=== PATIENT | male | born 1990 | race Caucasian/White ===

== ENCOUNTER 2022-04-26 11:04 | Inpatient (IN) | payer OTHER ==
[2022-04-26 11:56] LABS: Absolute Lymphocytes (CBC) 2.3 K/uL (0.7-4.9); Hematocrit 45.8 % (39.6-49.0); Lymphocytes % 27.1 % (15.3-44.8); MPV 7.6 fL (7.6-11.3); RBC Red Blood Cell Count 5.44 M/uL (4.33-5.43)
[2022-04-26] MEDS ORDERED: NA CHLORIDE 0.9% 1,000 ML ONE ×2 (11:59→15:56)
[2022-04-26] MEDS ORDERED: HYDROMORPHONE HCL 1 MG/ML INJ ONE ×2 (11:59→16:44)
[2022-04-26 12:27] LABS: Protime INR 1.04
--- NOTE | 2022-04-26 12:32 | RAD REPORT ---
EXAM DESCRIPTION: CTAbdomen Pelvis W Contrast - 04/26/2022 12:24 pm CLINICAL HISTORY: Abdominal pain. Abdominal pain, acute, nonlocalized COMPARISON: No comparisons TECHNIQUE: Biphasic CT imaging of the abdomen and pelvis was performed with 100 ml non-ionic IV cont rast. All CT scans are performed using dose optimization technique as appropriate and may include automated exposure control or mA/KV adjustment according to patient size. FINDINGS: The lung bases are clear. Mild diffuse fatty liver is present. Extensive cholelithiasis. The spleen, pancreas, adrenal glands a re normal. Horseshoe kidney noted. No bowel obstruction, free air, free fluid or abscess. The appendix is normal. No evidence of signi ficant lymphadenopathy. Mild lumbar degenerative changes. IMPRESSION: Cholelithiasis. Fatty liver. Horseshoe kidney.
[2022-04-26 12:34] LABS: Albumin 3.8 g/dL (3.4-5.0); Bilirubin Total 1.7 mg/dL (0.2-1.0); Potassium 3.4 mmol/L (3.5-5.1); Protein, Total 7.7 g/dL (6.4-8.2)
[2022-04-26] MEDS ORDERED: HYDROMORPHONE HCL 0.5 MG/0.5 ML INJ ONE (13:16)
--- NOTE | 2022-04-26 14:12 | RAD REPORT ---
EXAM DESCRIPTION: US - Abdomen Exam Limited - 04/26/2022 1:59 pm CLINICAL HISTORY: ABD PAIN COMPARISON: No comparisons FINDINGS: The gallbladder demonstrates shadowing gallstones. No pericholecystic fluid or gallbladder wall thickening. The common bile duct not well assessed due to shadowing. The liver demonstrates no findings of intrahepatic biliary dilatation. IMPRESSION: Cholelithiasis.
[2022-04-26] MEDS ORDERED: LIDOCAINE VISCOUS 2% SOLN 15 ML UDC ONE (14:44)
[2022-04-26] MEDS ORDERED: MAGNES/ALUMIN/SIMET 30ML UCUP ONE (14:44)
[2022-04-26] MEDS ORDERED: FENTANYL CITR 100 MCG/2 ML ONE ×3 (15:56→18:21)
--- NOTE | 2022-04-26 16:41 | EDPHYS ---
Physician Documentation [facility] Name: Liang Phillips Age: 32 yrs Sex: Male : 1990 Arrival Date: 04/26/2022 Time: 11:09 Bed 16 Private MD: ED Physician Neil Flannery HPI: 04/26 11:45 This 32 yrs old Male presents to ER via Ambulatory with complaints of Abdominal cp Cramping, Nausea/Vomiting/Diarrhea, Fever. 11:45 The patient presents with abdominal pain in the upper abdomen. cp 11:45 Onset: The symptoms/episode began/occurred this morning, about 0400, started while cp eating a taco. The symptoms radiate to back. Associated signs and symptoms: Pertinent positives: nausea and vomiting, Pertinent negatives: chest pain, constipation, diarrhea, fever, hematuria, testicular pain, vomiting blood. The symptoms are described as constant. Severity of pain: in the emergency department the pain is actually worse markedly. Historical: - Allergies: 11:26 No Known Allergies; iw - Home Meds: 11:26 None [Active]; iw - PMHx: 11:26 None; iw - Immunization history:: Client reports having NOT received the Covid vaccine. - Social history:: Smoking status: Reported history of juuling and/or vaping. ROS: 11:50 Constitutional: Negative for body aches, chills, fever. cp 11:50 Eyes: Negative for injury, pain, redness, and discharge. cp 11:50 ENT: Negative for ear pain, sore throat, difficulty swallowing, difficulty handling secretions. 11:50 Cardiovascular: Negative for chest pain, palpitations. 11:50 Respiratory: Negative for cough, shortness of breath, wheezing. 11:50 Abdomen/GI: Positive for abdominal pain, nausea and vomiting. 11:50 Back: Positive for radiated pain. 11:50 : Negative for urinary symptoms. 11:50 Neuro: Negative for altered mental status, headache, weakness. 11:50 All other systems are negative. Exam: 12:00 Constitutional: The patient appears alert, awake, non-toxic, well developed, well cp nourished, diaphoretic, obese, in obvious pain, uncomfortable. 12:00 Head/Face: Normocephalic, atraumatic. cp 12:00 Eyes: Periorbital structures: appear normal, Conjunctiva: normal, no exudate, no injection, Sclera: no appreciated abnormality, Lids and lashes: appear normal, bilaterally. 12:00 ENT: External ear(s): are unremarkable, Nose: is normal, Mouth: Lips: moist, Oral mucosa: pink and intact, moist, Posterior pharynx: Airway: no evidence of obstruction, patent. 12:00 Chest/axilla: Inspection: normal, Palpation: is normal, no crepitus, no tenderness. 12:00 Cardiovascular: Rate: bradycardic, Rhythm: regular, Edema: is not appreciated, JVD: is not appreciated. 12:00 Respiratory: the patient does not display signs of respiratory distress, Respirations: cp labored breathing, is not present, shallow respirations, that is mild, Breath sounds: are clear throughout, no decreased breath sounds, no stridor, no wheezing. 12:00 Abdomen/GI: Inspection: obese Bowel sounds: active, all quadrants, Palpation: soft, in all quadrants, severe abdominal tenderness, in the mid upper abdomen, rebound tenderness, is not appreciated. 12:00 Back: CVA tenderness, is absent. cp 12:00 Skin: cellulitis, is not appreciated, no rash present. 12:00 Neuro: Orientation: to person, place \T\ time. Mentation: is normal, Motor: moves all fours, strength is normal, Sensation: is normal. Vital Signs: 11:25 Resp 18; Temp 96.8; Pulse Ox 100% on R/A; Weight 104.33 kg; Height 5 ft. 6 in. (167.64 iw cm); Pain 10/10; 11:28 BP 128 / 69; Pulse 45; iw 13:03 BP 101 / 46; Pulse 55; Resp 16; Pulse Ox 100% ; bp 14:12 BP 132 / 78; Pulse 42; Resp 14; Pulse Ox 93% ; bp 15:57 BP 134 / 68; Pulse 56; Resp 14; Pulse Ox 94% ; bp 16:41 BP 134 / 71; Pulse 63; Resp 16; Pulse Ox 94% ; bp 11:25 Body Mass Index 37.12 (104.33 kg, 167.64 cm) iw MDM: 11:29 Patient medically screened. cp 12:00 Differential diagnosis: bowel obstruction, cholecystitis, Cholelithiasis, pancreatitis, cp Peptic Ulcer Disease, Perf. Duodenal Ulcer, Perf. Gastric Ulcer, Ureterolithiasis, urinary tract infection. 15:15 Data reviewed: vital signs, nurses notes, lab test result(s), radiologic studies, CT cp scan, ultrasound. 15:15 Physician consultation: Agus Olivo MD was called at 15:10, regarding consult, patient's cp condition, requests management of pain and reevaluation, if pain can be controlled, wants patient discharged to f/u outpatient. 16:35 Physician consultation: Agus Olivo MD was contacted at 16:35, regarding admission, to the operating room, patient's condition, will admit to OR for cholecystectomy. 04/26 11:39 Order name: CBC with Diff; Complete Time: 12:11 04/26 15:13 Interpretation: RBC 5.44; PLT 251; Reviewed. 04/26 11:39 Order name: CMP; Complete Time: 13:29 04/26 13:29 Interpretation: Normal except: K 3.4; GLUC 158; BUN 23; GFR 81; BILIT 1.7; GLOB 3.9; cp A/G 1.0. 04/26 11:39 Order name: Lipase; Complete Time: 13:29 04/26 11:46 Order name: PT-INR; Complete Time: 13:29 04/26 11:46 Order name: Urine Microscopic Only 04/26 11:46 Order name: CT Abd/Pelvis - IV Contrast Only; Complete Time: 13:29 04/26 13:30 Order name: US Abdomen Limited: RUQ/epigastric area; Complete Time: 14:18 04/26 14:18 Interpretation: Report reviewed. 04/26 11:39 Order name: IV Saline Lock; Complete Time: 11:40 04/26 11:39 Order name: Labs collected and sent; Complete Time: 11:40 04/26 12:02 Order name: Labs - recollect needed: recollect green top/ chemistries hemolyzed; eb Complete Time: 12:14 04/26 12:13 Order name: EKG; Complete Time: 12:13 04/26 12:13 Order name: EKG - Nurse/Tech; Complete Time: 14:43 04/26 16:32 Order name: NPO; Complete Time: 16:41 cp Administered Medications: 11:50 Drug: Dilaudid (HYDROmorphone) 1 mg Route: IVP; Site: right antecubital; iw 12:30 Follow up: Response: No change in condition bp 11:50 Drug: NS 0.9% 1000 ml Route: IV; Rate: 1 bolus; Site: right antecubital; iw 14:43 Drug: GI Cocktail without - (Maalox Suspension 30 ml, Lidocaine Liquid 2 % 15 bp ml) Route: PO; 15:19 Follow up: Response: No adverse reaction bp 15:20 Drug: NS 0.9% 1000 ml Route: IV; Rate: 1 bolus; Site: right antecubital; bp 15:20 Drug: fentaNYL (PF) 25 mcg Route: IVP; Site: right antecubital; bp 16:41 Follow up: Response: No adverse reaction bp 16:41 Drug: Dilaudid (HYDROmorphone) 1 mg Route: IVP; Site: right antecubital; bp 16:45 Drug: Zosyn (piperacillin-tazobactam) 4.5 grams Route: IVPB; Infused Over: 60 mins; bp Site: right antecubital; 16:45 Drug: NS 0.9% 1000 ml Route: IV; Rate: 125 ml/hr; Site: right antecubital; bp Disposition: 17:17 Co-signature as Attending Physician, Neil Flannery MD I agree with the assessment and kdr plan of care. Disposition Summary: 04/26/22 16:40 Hospitalization Ordered Hospitalization Status: Observation cp Provider: Agus Olivo cp Location: Operating Room cp Condition: Stable cp Problem: new cp Symptoms: have improved cp Bed/Room Type: Standard cp Room Assignment: cp Diagnosis - Other cholelithiasis without obstruction cp Discharge Instructions: - Discharge Summary Sheet iw Forms: - SBAR form iw - Medication Reconciliation Form cp Signatures: Dispatcher [employer] Neil Haq MD MD kdr Williams, Irene, RN RN iw Dani Benitez PA PA cp Peltier, Brian, RN RN Carla Buchanan Corrections: (The following items were deleted from the chart) 11:27 11:26 PSHx: None; iw iw 15:08 12:11 Reviewed. cp cp 15:13 15:08 RBC 5.44; Reviewed. cp cp
--- NOTE | 2022-04-26 16:41 | ER ---
Nurse's Notes [facility] Name: Liang Phillips Age: 32 yrs Sex: Male : 1990 Arrival Date: 04/26/2022 Time: 11:09 Bed 16 Private MD: Diagnosis: Other cholelithiasis without obstruction Presentation: 04/26 11:25 Chief complaint: Patient states: mid abd pain X 2 hours, 10/10 , +vomiting and iw diarrhea. Coronavirus screen: At this time, the client does not indicate any symptoms associated with coronavirus-19. Ebola Screen: Patient negative for fever greater than or equal to 101.5 degrees Fahrenheit, and additional compatible Ebola Virus Disease symptoms Patient denies exposure to infectious person. Patient denies travel to an Ebola-affected area in the 21 days before illness onset. No symptoms or risks identified at this time. Initial Sepsis Screen: Does the patient meet any 2 criteria? No. Patient's initial sepsis screen is negative. Does the patient have a suspected source of infection? No. Patient's initial sepsis screen is negative. Risk Assessment: Do you want to hurt yourself or someone else? Patient reports no desire to harm self or others. Onset of symptoms was April 26, 2022. 11:25 Method Of Arrival: Ambulatory iw 11:25 Acuity: JUNIOR 3 iw Triage Assessment: 12:05 General: Appears distressed, uncomfortable, obese, Behavior is cooperative, appropriate bp for age, anxious. Pain: Complains of pain in abdomen. EENT: No deficits noted. Neuro: No deficits noted. Cardiovascular: No deficits noted. Respiratory: No deficits noted. GI: Reports lower abdominal pain, nausea, vomiting. : No signs and/or symptoms were reported regarding the genitourinary system. Derm: No deficits noted. Musculoskeletal: No deficits noted. Historical: - Allergies: 11:26 No Known Allergies; iw - Home Meds: 11:26 None [Active]; iw - PMHx: 11:26 None; iw - Immunization history:: Client reports having NOT received the Covid vaccine. - Social history:: Smoking status: Reported history of juuling and/or vaping. Screenin:17 Abuse screen: Denies threats or abuse. Denies injuries from another. Nutritional iw screening: No deficits noted. Tuberculosis screening: No symptoms or risk factors identified. Fall Risk IV access (20 points). Assessment: 11:45 General: Appears uncomfortable, ill, Behavior is cooperative. Pain: Complains of pain iw in umbilical area, right upper quadrant and left upper quadrant. Neuro: Level of Consciousness is awake, alert, obeys commands, Oriented to person, place, time, situation, Moves all extremities. Cardiovascular:. Respiratory: Respiratory effort is even. GI: Reports upper abdominal pain, diarrhea, nausea, vomiting. Derm: Skin is clammy, Skin temperature is cool. 12:30 Reassessment: PT RETURNED FROM CT. bp 13:03 Reassessment: No changes from previously documented assessment. Patient and/or family bp updated on plan of care and expected duration. Pain level reassessed. 14:13 Reassessment: No changes from previously documented assessment. Patient and/or family bp updated on plan of care and expected duration. Pain level reassessed. U/S COMPLETED. 16:41 Reassessment: SURGERY C/S PENDING. bp 16:51 Reassessment: PT TO OR. bp Vital Signs: 11:25 Resp 18; Temp 96.8; Pulse Ox 100% on R/A; Weight 104.33 kg; Height 5 ft. 6 in. (167.64 iw cm); Pain 10/10; 11:28 BP 128 / 69; Pulse 45; iw 13:03 BP 101 / 46; Pulse 55; Resp 16; Pulse Ox 100% ; bp 14:12 BP 132 / 78; Pulse 42; Resp 14; Pulse Ox 93% ; bp 15:57 BP 134 / 68; Pulse 56; Resp 14; Pulse Ox 94% ; bp 16:41 BP 134 / 71; Pulse 63; Resp 16; Pulse Ox 94% ; bp 11:25 Body Mass Index 37.12 (104.33 kg, 167.64 cm) iw ED Course: 11:09 Patient arrived in ED. ja2 11:15 Dani Benitez PA is PHCP. cp 11:16 Neil Flannery MD is Attending Physician. cp 11:26 Triage completed. iw 11:27 Arm band placed on. iw 11:40 Inserted saline lock: 20 gauge in right antecubital area, using aseptic technique. iw 12:26 CT Abd/Pelvis - IV Contrast Only In Process Unspecified. EDMS 12:28 Libardo Rizvi, RN is Primary Nurse. bp 12:33 Patient has correct armband on for positive identification. Bed in low position. Call bp light in reach. Side rails up X2. 12:44 EKG done, by ED staff. tm3 14:01 US Abdomen Limited: RUQ/epigastric area In Process Unspecified. EDMS 16:39 Agus Olivo MD is Hospitalizing Provider. cp 17:01 No provider procedures requiring assistance completed. Patient admitted, IV remains in iw place. Administered Medications: 11:50 Drug: Dilaudid (HYDROmorphone) 1 mg Route: IVP; Site: right antecubital; iw 12:30 Follow up: Response: No change in condition bp 11:50 Drug: NS 0.9% 1000 ml Route: IV; Rate: 1 bolus; Site: right antecubital; iw 14:43 Drug: GI Cocktail without - (Maalox Suspension 30 ml, Lidocaine Liquid 2 % 15 bp ml) Route: PO; 15:19 Follow up: Response: No adverse reaction bp 15:20 Drug: NS 0.9% 1000 ml Route: IV; Rate: 1 bolus; Site: right antecubital; bp 15:20 Drug: fentaNYL (PF) 25 mcg Route: IVP; Site: right antecubital; bp 16:41 Follow up: Response: No adverse reaction bp 16:41 Drug: Dilaudid (HYDROmorphone) 1 mg Route: IVP; Site: right antecubital; bp 16:45 Drug: Zosyn (piperacillin-tazobactam) 4.5 grams Route: IVPB; Infused Over: 60 mins; bp Site: right antecubital; 16:45 Drug: NS 0.9% 1000 ml Route: IV; Rate: 125 ml/hr; Site: right antecubital; bp Medication: 12:30 VIS not applicable for this client. bp Outcome: 16:40 Decision to Hospitalize by Provider. cp 17:01 Admitted to OR accompanied by nurse, via wheelchair. iw 17:02 Patient left the ED. iw Signatures: Dispatcher [employer] EDIA Chin Cortes tm3 Zoe Mac RN RN iw Dani Benitez PA PA Librado Thorpe, RN RN Lian Taylor2 Corrections: (The following items were deleted from the chart) 11:27 11:25 Resp 18bpm; Pulse Ox 100% RA; Temp 96.8F; 104.33 kg; Height 5 ft. 6 in.; BMI: iw 37.1; Pain 09/07; iw 11:26 PSHx: None; iw iw
[2022-04-26] MEDS ORDERED: NA CHLORIDE 0.9% 100 ML ONE (16:53)
[2022-04-26] MEDS ORDERED: PIPERACIL/TAZO 3.375 GM VIAL IV ONE (16:54)
--- NOTE | 2022-04-26 17:17 | P.HP ---
Date of Service: 04/26/22 Chief complaint: Abdominal pain History of present Illness: Patient is a 32-year-old gentleman who presents with acute onset of epigastric abdominal pain radiating to the right upper quadrant and back. Pain is associated with nausea, vomiting, bloating, belching and heartburn. Patient denies diarrhea, constipation, blood per rectum, dysuria or hematuria. Patient denies sore throat, runny nose, cough, headaches, dizziness, chest pain, fever or chills. Patient ate fajitas and [employer]aco [employer] last night and awoke this morning with abdominal pain. Patient has had similar episode in the past, but not as severe. Patient's pain was unable to be managed appropriately in the emergency room despite multiple medications being given to the patient. Therefore, patient was admitted for cholecystectomybased on the results of the work-up done. Review of systems: Otherwise unremarkable Past medical history: Negative Past surgical history: Knee surgery Allergies: None Social history: Vapes, does not drink alcohol Family history: Brain tumor and heart failure Physical exam: Vital signs: Stable, afebrile Awake alert oriented x3 Head and neck: Cranial nerves II through XII grossly within normal normal limits, no neck masses, no JVD, throat clear and neck supple. No evidence of icterus. Chest: Clear Heart: S1-S2 Abdomen: Soft, nondistended, positive bowel sounds, right upper quadrant tenderness with minimal rebound no rigidity or guarding Extremity: Neurovascular intact, nontender Neuro: Nonfocal Diagnostic data: Laboratory data reviewedLFTs are within normal limits. CT scan of the abdomen pelvis as well as the ultrasound reviewed with radiologist. Assessment: Chronic cholecystitis and cholelithiasis with acute exacerbation of abdominal pain Plan/recommendation: Admit, n.p.o., IV fluids, IV antibiotics and to the OR for laparoscopic cholecystectomy possible open. Patient understands risks, benefits and alternatives and agrees to procedure. CC:
[2022-04-26] MEDS ORDERED: NA CIT/CITRIC AC 30 ML ORAL UDC ONE (17:23)
[2022-04-26] MEDS ORDERED: propofoL 200 MG/20 ML VIAL IV ONE (17:24)
[2022-04-26] MEDS ORDERED: ROCURONIUM 50 MG/5 ML VIAL IV ONE (17:25)
[2022-04-26] MEDS ORDERED: LIDOCAINE 2% MPF 5 ML VIAL ONE (17:25)
[2022-04-26] MEDS ORDERED: SUCCINYLCHOLINE 20 MG/ML (10 ML) IV ONE (17:28)
[2022-04-26] MEDS ORDERED: GLYCOPYRROLATE 0.2 MG/ML SYR ONE ×3 (17:37→18:10)
[2022-04-26] MEDS ORDERED: Ringers Lactate 1,000 ML IV ONE (17:41)
[2022-04-26] MEDS ORDERED: KETOROLAC 30 MG/ML INJ ONE (17:54)
[2022-04-26] MEDS ORDERED: dexAMETHasone 10 MG/ML VIAL ONE (17:55)
[2022-04-26] MEDS ORDERED: ONDANSETRON 4 MG/2 ML VIAL ONE (17:55)
[2022-04-26] MEDS ORDERED: NEOSTIGMINE 1 MG/ML -10 ML VIAL ONE (18:20)
[2022-04-26] MEDS ORDERED: ONDANSETRON 4 MG/2 ML VIAL IV PRN (18:44)
--- NOTE | 2022-04-26 19:23 | P.OP ---
Date of Service: 04/26/22 Preop diagnosis: Acute and chronic cholecystitis and cholelithiasis Postop diagnosis: Same, gangrenous cholecystitis Procedure performed: Laparoscopic cholecystectomy Surgeon: Agus Olivo MD Atg Java Developer: Shaista GILLILAND Estimated blood loss: Minimal Specimen: Gallbladder Findings: As above Anesthesia: General Complications: None Drains: None Fluids and blood products: Nonapplicable Disposition: Recovery room Operative note: Patient brought to the OR and placed in the supine position. General anesthesia begun. Patient was prepped and draped in the usual sterile manner. Marcaine 0.5% was infiltrated locally. 15 blade was used to make a 1 cm supraumbilical midline incision. Subcutaneous tissue divided and fascia identified and divided. #1 Vicryl stay suture placed. Peritoneal cavity entered with sharp and blunt dissection. 12 mm trocar placed into the peritoneal cavity under direct vision. Pneumoperitoneum established. 3 5 mm trochars placed, one in the epigastrium just to the right Of midline and 2 in the right subcostal region. Laparoscopy revealed distended gallbladder with gangrenous changes. Gallbladder was aspirated of bile. Then the fundus was retracted superiorly. Infundibulum was difficult to identify because of the patient's anatomy. Therefore, a fourth 5 mm trocar was placed in the right side of the abdomen. A fan retractor was utilized to help expose the infundibulum and the cystic duct and cystic artery area. The infundibulum was retracted inferolaterally. Then sharp and blunt dissection was utilized to identify the cystic duct and the cystic artery. Clips placed and both structures divided. Cautery used to remove the gallbladder from the liver bed. Bleeding on the liver bed controlled with cautery. Gallbladder retrieved through the umbilicus via Endo Catch bag. The fascial incision had to be extended to allow to removal of this very large gallbladder. Then, pneumoperitoneum was reestablished. Right upper quadrant was thoroughly irrigated. There was minimal oozing noted from the liver bed. Surgicel was applied after cautery was utilized. There is no other evidence of bleeding or bile leakage appreciated. Effluent was clear. Subsequently all trochars were removed under direct vision. #1 Vicryl was used to close the fascial defect in a running fashion. Subcutaneous wounds irrigated and bleeding controlled with cautery. Staple used to close skin. Sterile dressing applied. Patient awakened and taken to recovery room in good general condition. CC:
[2022-04-26] MEDS ORDERED: HYDROMORPHONE HCL 1 MG/ML INJ IV PRN (19:30)
[2022-04-26] MEDS: Ringers Lactate 1,000 ML IV SCH (20:35)
[2022-04-26 20:59] VITALS: BMI 37.1
[2022-04-27] MEDS: PIPER TAZO 3.375 GM in NA CHLORIDE 0.9% 100 ML IV SCH ×3 (01:10→18:18)
[2022-04-27 03:57] LABS: Absolute Lymphocytes (CBC) 0.8 K/uL (0.7-4.9); Hematocrit 41.7 % (39.6-49.0); Lymphocytes % 6.1 % (15.3-44.8); MPV 7.6 fL (7.6-11.3); RBC Red Blood Cell Count 4.98 M/uL (4.33-5.43)
[2022-04-27] MEDS: Ringers Lactate 1,000 ML IV SCH ×4 (04:00→18:19)
[2022-04-27 04:09] LABS: Albumin 3.2 g/dL (3.4-5.0); Bilirubin Direct 0.4 mg/dL (0-0.2); Potassium 3.9 mmol/L (3.5-5.1); Protein, Total 7.1 g/dL (6.4-8.2)
[2022-04-27 05:06] LABS: Blood Morphology Comment NOT SEEN (NOT SEEN); Platelet Estimate ADEQ
[2022-04-27] MEDS: HYDROCODONE/APAP 7.5/325 MG TAB PO PRN ×2 (09:02→18:18)
--- NOTE | 2022-04-27 10:17 | P.PN ---
Date of Service: 04/27/22 Subjective: Patient is awake and alert. Patient is tolerating diet. Pain is controlled on parenteral pain medication. Objective: Vital signs stable, afebrileWhite count is 13.1 Abdomen: Soft, nondistended, nontender, positive bowel soundsdressing is clean dry and intact Assessment: Laparoscopic cholecystectomy for gangrenous cholecystitis Plan: Continue IV antibiotics for 1 more day. Patient is clinically doing well. We will discharge patient on oral antibiotics tomorrow morning. CC:
[2022-04-27 21:07] VITALS: O2SAT 91
[2022-04-28] MEDS: PIPER TAZO 3.375 GM in NA CHLORIDE 0.9% 100 ML IV SCH (01:03)
[2022-04-28 03:52] LABS: Absolute Lymphocytes (CBC) 2.4 K/uL (0.7-4.9); Hematocrit 38.7 % (39.6-49.0); Lymphocytes % 24.5 % (15.3-44.8); MPV 7.6 fL (7.6-11.3); RBC Red Blood Cell Count 4.52 M/uL (4.33-5.43)
[2022-04-28] MEDS: HYDROCODONE/APAP 7.5/325 MG TAB PO PRN ×2 (04:07→08:51)
[2022-04-28] MEDS: Ringers Lactate 1,000 ML IV SCH (04:08)
[2022-04-28 08:10] VITALS: BP 115/74; TEMP 99.2
--- NOTE | 2022-04-28 08:15 | P.DS ---
Admission Date: 04/27/22 Discharge Date: 04/28/22 Disposition: ROUTINE DISCHARGE Discharge Condition: GOOD Brief History of Present Illness: Patient is a 32-year-old gentleman who came to our emergency room with abdominal pain. Hospital Course: Work-up revealed acute cholecystitis and cholelithiasis. Patient was taken to the operating room and found to have gangrenous cholecystitis. Patient underwent a laparoscopic cholecystectomy. Postoperatively he was Today for IV antibiotics. Currently the patient is tolerating diet, ambulating, pain controlled on p.o. pain medication and afebrile; therefore, patient will be discharged home. Vital Signs/Physical Exam: Temp Pulse Resp BP Pulse Ox 99.2 F 93 H 16 115/74 90 L 04/28/22 08:00 04/28/22 08:00 04/28/22 08:00 04/28/22 08:00 04/28/22 08:00 Laboratory Data at Discharge: WBC 9.7 K/uL (4.3-10.9) D 04/28/22 03:08 Hgb 13.2 g/dL (13.6-17.9) L 04/28/22 03:08 Hct 38.7 % (39.6-49.0) L 04/28/22 03:08 Plt Count 185 K/uL (152-406) 04/28/22 03:08 PT 11.5 SECONDS (9.5-12.5) 04/26/22 12:05 INR 1.04 04/26/22 12:05 Sodium 138 mmol/L (136-145) 04/27/22 03:21 Potassium 3.9 mmol/L (3.5-5.1) 04/27/22 03:21 BUN 14 mg/dL (7-18) 04/27/22 03:21 Creatinine 1.20 mg/dL (0.55-1.3) 04/27/22 03:21 Glucose 131 mg/dL (74-106) H 04/27/22 03:21 Total Bilirubin 2.0 mg/dL (0.2-1.0) H 04/27/22 03:21 AST 68 U/L (15-37) H 04/27/22 03:21 ALT 86 U/L (12-78) H 04/27/22 03:21 Alkaline Phosphatase 48 U/L (45-117) 04/27/22 03:21 Lipase 96 U/L (73-393) 04/27/22 03:21 Home Medications: NK [No Home Meds] 04/26/22 Physician Discharge Instructions: Remove dressing and shower Keep wound clean and dry Dry gauze to wound daily Augmentin and Tylenol 3 have been called into patient's pharmacy Incentive spirometry as ordered Abdominal binder as ordered Diet: Regular Activity: No lifting more than 10 lbs Followup: NONE,NONE [Primary Care Provider] - Agus Olivo MD [ACTIVE - CAN ADMIT] - 1 Week
--- NOTE | 2022-04-28 12:21 | EKG ---
Test Date: 2022-04-26 Test Time: 12:37:25 Ethics Instructor: TM MEASUREMENT RESULTS: Intervals: Rate: 39 CT: 142 QRSD: 106 QT: 520 QTc: 418 [place]: P: 59 CT: 142 QRS: 14 T: 31 INTERPRETIVE STATEMENTS: Marked sinus bradycardia Abnormal ECG No previous ECG available for comparison Electronically Signed On 04-28-22 12:17:01 CDT by Low Maxwell
== END 2022-04-28 09:30 | disposition home or self-care (01) | DRG 419 ==
LOC: ER 11:04 → 2ND 18:42 → OBSVTOIN 04-27 12:06
PROVIDERS: ADMIT Surgery; ATTEND Surgery
PROC: 0FT44ZZ Resection of Gallbladder, Percutaneous Endoscopic Approach (ICD-10-PCS; principal; 2022-04-26 16:45)
DX: K80.12 Calculus of gallbladder with acute and chronic cholecystitis without obstruction (principal); K82.A1 Gangrene of gallbladder in cholecystitis; F17.290 Nicotine dependence, other tobacco product, uncomplicated
CPT/HCPCS: 36415; 74177; 76705; 80048; 80053; 80076; 82565; 83690; 85025; 85610; 88304; 93005; 94010; 96374; 96375; 99285; G0378; J0330; J1100; J1170; J2405; J2543; J2704; J2710; J3010; J7030; J7120; Q9967